=== PATIENT | male | born 1975 | race Asian ===

== ENCOUNTER 2025-02-26 08:59 | Outpatient (CLI) | payer BC | END 2025-02-26 09:00 | disposition home or self-care (01) | LOC: CSHSLEEP 08:59 | PROVIDERS: ATTEND Family Medicine | DX: G47.33 Obstructive sleep apnea (adult) (pediatric) (principal); R53.83 Other fatigue; R06.83 Snoring; I10 Essential (primary) hypertension | CPT/HCPCS: 95811 ==